=== PATIENT | female | born 1995 | race Hispanic/Latino ===

== ENCOUNTER 2017-05-28 22:48 | Inpatient (IN) | payer MEDICAID ==
[2017-05-29] MEDS ORDERED: STADOL IV PRN (00:35)
[2017-05-29] MEDS ORDERED: MINERAL OIL PO PRN (00:35)
[2017-05-29] MEDS ORDERED: ZOFRAN IV PRN (00:35)
[2017-05-29] MEDS ORDERED: XYLOCAINE 2% INFILTRATI ONE (00:35)
[2017-05-29] MEDS ORDERED: BRETHINE SUB-Q PRN (00:35)
[2017-05-29] MEDS ORDERED: SUBLIMAZE IV PRN (00:35)
[2017-05-29] MEDS ORDERED: ePHEDrine SULFATE IV PRN ×2 (00:35→02:40)
--- NOTE | 2017-05-29 00:44 | History and Physical Report ---
History of Present Illness Date of examination: 05/29/17 Date of admission: 05/28/17 22:50 Chief complaint: SROM History of present illness: EDC Confirmation: 05/25/2017 Past History : 3 Term Births: 2 Living Children: 2 Para: 2 Prev : 0 Aborta: 0 Elect. Ab: 0 Spont. 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 of genital herpes: no Partner hx. of genital herpes: no Rash, Viral, or Febrile illness since last LMP? no Varicella/Chicken Pox Status: Immunized TB Risk: no Genetic History Congenital Heart Defect: Mom: no Dad: no Sriram Disease: Mom: no Dad: no Thalassemia Mom: no Dad: no Neural Tube Defect Mom: no Dad: no Down's Syndrome Mom: no Dad: no Tio-Sachs Mom: no Dad: no Sickle Cell Disease/Trait Mom: no Dad: no Hemophilia Mom: no Dad: no Muscular Dystrophy Mom: no Dad: no Cystic Fibrosis Mom: no Dad: no Karlos Chorea Mom: no Dad: no Mental Retardation Mom: no Dad: no Fragile X Mom: no Dad: no Other Genetic/Chromosomal Disorder Mom: no Dad: no Child w/other defect Mom: no Dad: no Enviromental Exposures Xray Exposure: no Medication, drug, or alcohol use since LMP: no Chemical/Other Exposure: no Exposure to Cat Liter: yes Hx of Parvovirus (Fifth Disease): no Occupational Exposure to Children: none Active Medications (reviewed today): None Current Allergies (reviewed today): * PCN (Critical) Past History Past Medical History: other (see HPI) 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 History: 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 (see 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) 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) - Obstetrical History Expected Date of Delivery: 05/25/17 Actual Gestation: 40 Week(s) 4 Day(s) : 3 Para: 2 Hx # Term Pregnancies: 2 Number of Pregnancies: 0 Spontaneous Abortions: 0 Induced : 0 Number of Living Children: 2 Medications and Allergies Allergies Allergy/AdvReac Type Severity Reaction Status Date / Time Penicillins Allergy Hives Unverified 05/28/17 22:51 Active Meds: Active Medications Butorphanol Tartrate (Stadol) 2 mg IV Q2H PRN PRN Reason: Pain , Severe (7-10) Ephedrine Sulfate (Ephedrine Sulfate) 10 mg IV Q2M PRN PRN Reason: Hypotension Fentanyl (Sublimaze) 100 mcg IV Q2H PRN PRN Reason: Labor Pain Lactated Ringer's (Lactated Ringers) 1,000 mls @ 125 mls/hr IV DIRECT RAVI Oxytocin/Sodium Chloride (Pitocin/Ns 20 Unit/1000ml Drip) 20 units in 1,000 mls @ 125 mls/hr IV DIRECT RAVI Oxytocin/Sodium Chloride (Pitocin/Ns 30 Unit/500ml) 30 units in 500 mls @ 4 mls /hr IV TITR RAVI; Protocol Lidocaine (Xylocaine 2%) 20 ml INFILTRATI ONCE ONE Stop: 05/29/17 00:36 Mineral Oil (Mineral Oil) 30 ml PO QHS PRN PRN Reason: Constipation Ondansetron HCl (Zofran) 4 mg IV Q8H PRN PRN Reason: Nausea And Vomiting Terbutaline Sulfate (Brethine) 0.25 mg SUB-Q ONCE PRN PRN Reason: Hyperstimulation/Hypertonicity Review of Systems All systems: negative - Vital Signs Vital signs: Vital Signs Temp Pulse Resp BP Pulse Ox 98.9 F 95 H 18 112/68 98 05/28/17 23:37 05/28/17 23:37 05/28/17 23:37 05/28/17 23:37 05/28/17 23:37 Temp Pulse Resp BP Pulse Ox 98.9 F 95 H 18 112/68 98 05/28/17 23:37 05/28/17 23:37 05/28/17 23:37 05/28/17 23:37 05/28/17 23:37 - Physical Exam Breasts: Positive: normal Cardiovascular: Regular rate Lungs: Positive: Clear to auscultation Abdomen: Positive: normal appearance, soft, normal bowel sounds Genitourinary (Female): Positive: normal external genitalia, normal perenium Vulva: both: normal Vagina: Positive: normal moisture Uterus: Positive: normal size, normal contour Anus/Rectum: Positive: normal perianal skin Extremities: Positive: normal Deep Tendon Reflex Grade: Normal +2 - Obstetrical FHR: category 1 Uterine Contraction Monitor Mode: External Cervical Dilatation: 4.5 (posterior, clear fluid) Cervical Effacement Percentage: 80 station: -2 Uterine Contraction Pattern: Irregular Uterine Tone Measurement Phase: Contraction Uterine Contraction Intensity: Mild Results All other labs normal. Assessment and Plan 22y/o @40+4 weeks, admitted for SROM @ 202905/28/17. normal course. GBS NEG. Admission orders in EMR. Pitocin augmentation, epidural PRN. Anticipate . - Patient Problems (1) SROM (spontaneous rupture of membranes) Current Visit: Yes Status: Acute (2) 40 weeks gestation of Current Visit: Yes Status: Acute
[2017-05-29] MEDS ORDERED: PITOCin/NS 20 UNIT/1000ML DRIP 20 UNITS/1,000 ML BAG IV SCH ×2 (01:00→11:49)
[2017-05-29] MEDS ORDERED: PITOCin/NS 30 UNIT/500ML 30 UNITS/500 ML BAG IV SCH (01:00)
[2017-05-29] MEDS ORDERED: LACTATED RINGERS 1,000 ML IV SCH (01:00)
[2017-05-29 02:03] LABS: Hematocrit 28.2 % (30.3-42.9); Hemoglobin 9.3 gm/dl (10.1-14.3); Mean Corpuscular HGB Conc 33 % (30-34); Mean Corpuscular Volume 75 fl (79-97); Platelet Count 253 K/mm3 (140-440); Red Blood Count 3.75 M/mm3 (3.65-5.03); Red Cell Distribution Width 14.5 % (13.2-15.2)
[2017-05-29 02:05] LABS: Mean Corpuscular Hemoglobin 25 pg (28-32)
[2017-05-29] MEDS ORDERED: NARCAN 2 MG/2 ML IV PRN (02:40)
--- NOTE | 2017-05-29 02:40 | Anesthesia Consultation ---
Anesthesia Consult and Med Hx Date of service: 05/29/17 - Airway Anesthetic Teeth Evaluation: Good ROM Head & Neck: Adequate Mental/Hyoid Distance: Adequate Intubation Access Assessment: Possibly Difficult - Pulmonary Exam CTA: Yes - Cardiac Exam Cardiac Exam: RRR - Pre-Operative Health Status ASA Pre-Surgery Classification: ASA2 Proposed Anesthetic Plan: Epidural, Spinal - Pulmonary Hx Smoking: No Hx Asthma: No COPD: No Hx Pneumonia: No - Cardiovascular System Hx Hypertension: No - Central Nervous System Hx Seizures: No Hx Psychiatric Problems: No - Endocrine Hx Renal Disease: No Hx End Stage Renal Disease: No Hx Hypothyroidism: No Hx Hyperthyroidism: No - Hematic Hx Anemia: No Hx Sickle Cell Disease: No - Other Systems Hx Alcohol Use: No
[2017-05-29] MEDS ORDERED: fentaNYL-BUPIV 2 MCG/ML-0.125% 200 MCG/100 ML BAG EPIDURAL SCH (03:00)
--- NOTE | 2017-05-29 06:06 | Procedure Note ---
OB Delivery Note - Delivery Date of Delivery: 05/29/17 ( male) Outlet Manager: LI VERDUGO Estimated blood loss: 200cc - Vaginal Delivery presentation: vertex Delivery position: OA Intrapartum events: mult.variable deceleratio Delivery induction: none Delivery augmentation: pitocin Delivery monitor: external FHT, external uterine Route of delivery: Delivery placenta: spontaneous Delivery cord: nuchal cord (cord around neck and shoulder), 3 umbilical vessels Delivery laceration: none Anesthesia: epidural Delivery comments: Male del over intact perineum, placed skin to skin. 3 vessel cord clamped and cut. placenta del intact and complete. No lacerations to repair. EBL 200. Apgars 8/9, baby's weight 6#13oz - Infant A at 1 minute: 8 at 5 minutes: 9 Gender: Male (6#13)
[2017-05-29] MEDS ORDERED: MILK OF MAGNESIA PO PRN (11:49)
[2017-05-29] MEDS ORDERED: PRENATAL VITAMIN PO SCH (11:49)
[2017-05-29] MEDS ORDERED: PHENERGAN PO PRN (11:49)
[2017-05-29] MEDS ORDERED: BENADRYL PO PRN (11:49)
[2017-05-29] MEDS ORDERED: TUCKS PAD TP PRN (11:49)
[2017-05-29] MEDS ORDERED: LANSINOH TP PRN (11:49)
[2017-05-29] MEDS ORDERED: SODIUM CHLORIDE FLUSH SYRINGE 10 ML IV NR (11:49)
[2017-05-29] MEDS ORDERED: DERMOPLAST TP PRN (11:49)
[2017-05-29] MEDS ORDERED: NORCO 5/325 PO PRN (11:49)
[2017-05-29] MEDS ORDERED: FEOSOL PO SCH (11:49)
[2017-05-29] MEDS: MOTRIN PO SCH (11:57)
[2017-05-29] MEDS ORDERED: TYLENOL PO PRN (12:00)
[2017-05-29] MEDS ORDERED: DULCOLAX PR PRN (12:00)
[2017-05-29 19:36] LABS: Hematocrit 25.8 % (30.3-42.9); Hemoglobin 8.4 gm/dl (10.1-14.3)
[2017-05-30] MEDS: MOTRIN PO SCH ×3 (00:05→11:45)
--- NOTE | 2017-05-30 05:32 | Discharge Summary ---
Providers - Providers Date of Admission: 05/28/17 22:50 Date of discharge: 05/30/17 (pt desires d/c ) Attending physician: CARLYN GOODE 05/29/17 11:49 Consult to Registered Nurse Post Partum [CONS] Routine Reason For Exam: assistance with , SNS Primary care physician: CARLYN GOODE Hospitalization Reason for admission: active labor Delivery: Episiotomy: none Laceration: none Incision: normal Other procedures: none complications: none Discharge diagnosis: IUP at term delivered [place] baby: male Hospital course: uncomplicated vaginal delivery Pt w/o complaint VSS FF below umb Lochia small Perineum intact. H&H 10/05, chronic anemia. Pt is asymptomatic Doing well s/p vag delivery P: d/c today with instructions RTO 4 weeks PP care One week for circ. RX provided @ d/c Condition at discharge: Good Disposition: DC-01 TO HOME OR SELFCARE - Discharge Diagnoses (1) (normal spontaneous vaginal delivery) Status: Acute Comment: RTO 4 weeks PP care Plan - Provider Discharge Summary Activity: routine, no sex for 6 weeks, no heavy lifting 4 weeks, no strenuous exercise Diet: routine Instructions: routine Additional instructions: [] Smoking cessation referral if applicable(refer to patient education folder for contact #) [] Refer to [facility] Booklet Call your doctor immediately for: * Fever > 100.5 * Heavy vaginal bleeding ( >1 pad per hour) * Severe persistent headache * Shortness of breath * Reddened, hot, painful area to leg or breast * Drainage or odor from incision. * Keep incision clean and dry at all times and follow doctor's instructions regarding bathing/showering - Follow up plan Follow up: CARLYN GOODE MD [Primary Care Provider] - 7 Days (Congratulations! Please call [phone] to schedule your visit in 4 weeks and your son's circumcision in one week. Bring the EMLA cream with you to his visit. Do NOT use it at home. Take medications as prescribed. Call with any concerns.)
[2017-05-30] MEDS ORDERED: BOOSTRIX IM ONE (06:08)
[2017-05-30 12:19] VITALS: BP 98/62
== END 2017-05-30 14:15 | disposition home or self-care (01) | DRG 775 ==
LOC: TRG 22:48 → LD 22:50 → OB 05-29 08:46
PROVIDERS: ADMIT Obstetrics & Gynecology; ATTEND Obstetrics & Gynecology
PROC: 10E0XZZ Delivery of Products of Conception, External Approach (ICD-10-PCS; principal; 2017-05-29)
PROC: 3E0R3BZ Introduction of Anesthetic Agent into Spinal Canal, Percutaneous Approach (ICD-10-PCS; 2017-05-29)
PROC: 00HU33Z Insertion of Infusion Device into Spinal Canal, Percutaneous Approach (ICD-10-PCS; 2017-05-29)
PROC: 3E0234Z Introduction of Serum, Toxoid and Vaccine into Muscle, Percutaneous Approach (ICD-10-PCS; 2017-05-30)
DX: O76 Abnormality in fetal heart rate and rhythm complicating labor and delivery (principal); O69.81X0 Labor and delivery complicated by cord around neck, without compression, not applicable or unspecified; Z88.0 Allergy status to penicillin; Z23 Encounter for immunization; Z37.0 Single live birth; Z3A.40 40 weeks gestation of pregnancy
CPT/HCPCS: 36415; 85014; 85018; 85027; 86592; 86850; 86900; 86901; 90471; 90715; 99211; G0463; J2590; J7120

== ENCOUNTER 2017-07-30 09:45 | Day surgery (SDC) | payer MEDICAID ==
--- NOTE | 2017-07-29 20:02 | History and Physical Report ---
History of Present Illness Date of examination: 07/25/17 Chief complaint: Sterilization History of present illness: Past History : 3 Term Births: 3 Living Children: 3 Para: 3 Prev : 0 Aborta: 0 Elect. Ab: 0 Spont. 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 of genital herpes: no Partner hx. of genital herpes: no Hx of STD: none Active Medications (reviewed today): OXYCODONE-ACETAMINOPHEN 5-325 MG ORAL TABLET (OXYCODONE-ACETAMINOPHEN) 1-2po q6h IBUPROFEN 600 MG ORAL TABLET (IBUPROFEN) 1 po q6hrs as directed prn FIORICET/CODEINE [id number] MG ORAL CAPSULE ([id number]-COD) ZOLOFT 50 MG ORAL TABLET (SERTRALINE HCL) 1 po in the morning Current Allergies (reviewed today): PCN (Critical) * LATEX (Critical) Past Medical History: Neurologic Disorder - migranes w/o aura Depression 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 History: Reviewed history from 11/13/2016 and no changes required: Negative 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 History Family History Summary: Other family member - Has No Family History of Uterine Cancer - Entered On: 07/29 Other family member - Has No Family History of Stomach Cancer - Entered On: 07/29 Other family member - Has No Family History of Spontaneous DVT-PE - Entered On: 07/29/2017 Other family member - Has No Family History of Small Bowel Cancer - Entered On: 07/29/2017 Other family member - Has No Family History of Pancreatic Cancer - Entered On: Other family member - Has No Family History of Ovarvian Cancer - Entered On: Other family member - Has No Family History of Kidney/Urinary Tract Cancer - Entered On: 07/29/2017 Other family member - Has No Family History of Colon Cancer - Entered On: 2017 Other family member - Has No Family History of Brain Cancer - Entered On: 2017 Other family member - Has No Family History of Biliary Tract Cancer - Entered On : 07/29/2017 PGM - Has Family History Breast Cancer - and great - Entered On: 07/29/2017 Aunt - Has Family History Breast Cancer - paternal x3 - Entered On: 07/29/2017 General Comments - FH: No known family hx, denies any fh of CA Social History: Reviewed history from 11/13/2016 and no changes required: single no ETOH/Drugs/Smoking Patient is single Smoking History: Patient has never smoked. Risk Factors: Smoked Tobacco Use: Never smoker Alcohol use: no Previous Tobacco Use: Signed On - 06/28/2017 Smoked Tobacco Use: Never smoker Smokeless Tobacco Use: Never Passive smoke exposure: no Drug use: no HIV high-risk behavior: no Caffeine use: 0 drinks per day Previous Alcohol Use: Signed On - 06/28/2017 Alcohol use: no Exercise: no Seatbelt use: 100 % Family History Risk Factors: Family History of [place] in females < 65 years old: no Family History of [place] in males < 55 years old: no Dietary Counseling: pn yes Review of Systems General Denies fever, chills, sweats, anorexia, fatigue, weakness, malaise, weight loss and sleep disorder. Denies vaginal discharge, incontinence, dysuria, hematuria, urinary frequency, amenorrhea, menorrhagia, abnormal vaginal bleeding, pelvic pain, genital sores, decreased libido, painful periods, painful sex, urinary urgency, hot flashes, vaginal dryness, vaginal itching and vaginal odor. CV Denies chest pains, palpitations, syncope, dyspnea on exertion, orthopnea, PND and peripheral edema. Resp Denies cough, dyspnea at rest, excessive sputum, hemoptysis, wheezing and pleurisy. GI Denies nausea, vomiting, diarrhea, constipation, change in bowel habits, abdominal pain, melena, hematochezia, jaundice, gas/bloating, indigestion/ heartburn, dysphagia and odynophagia. Endo Denies cold intolerance, heat intolerance, polydipsia, polyphagia, polyuria and unusual weight change. Breast Denies left breast lump, right breast lump, nipple discharge, bloody discharge from nipple, breast pain, abnormal mammogram and breast enlargement. MS Denies back pain, joint pain, joint swelling, muscle cramps, muscle weakness, stiffness, arthritis, sciatica, restless legs, leg pain at night and leg pain with exertion. Derm Denies rash, itching, dryness and suspicious lesions. Neuro Denies paralysis, paresthesias, headache, seizures, tremors, vertigo, transient blindness, frequent falls, frequent headaches and difficulty walking. Psych Denies depression, anxiety, irritability and mood swings. Eyes Denies blurring, diplopia, irritation, discharge, vision loss, eye pain and photophobia. ENT Denies earache, ear discharge, tinnitus, decreased hearing, nasal congestion, nosebleeds, sore throat and hoarseness. Allergy Denies urticaria, allergic rash, hay fever and recurrent infections. Heme Denies abnormal bruising, bleeding and enlarged lymph nodes. Physical Exam Appearance: well developed, well nourished, no acute distress Other Exams Lungs: no rales, rhonchi, or wheezes Heart: S1, S2, no murmur, rub, or gallop Impression & Recommendations: Problem # 1: Sterilization (ICD-V25.2) ([id number]) Risks of regret emphasized. Permanent and irreversible condition explained to patient. Pt verbalized understanding. Consent reviewed and signed. Pre- operative instructions sheets given. The risks and alternatives to this surgery were reviewed with the patient. Infection precautions reviewed, pt to call for any signs or symptoms of infection. Patient given ample opportunity to have all her questions answered before signing informed consent. Patient informed of possible bleeding. 1%failure rate emphasized. She desiores to proceed with removal of both fallopoian tubes for sterilization and other indicated procedures Consent reviewed and signed . Possible laparoscopy or laparotomy explained to patient. The risks and alternatives for this surgery were reviewed with the patient. She was informed of possible bleeding, infection, injury to bowel, bladder, ureters or other adjacent organs. The patient was instructed/informed the following: The normal length of hospital stay for this procedure. Nothing to eat or drink after midnight the evening prior to surgery. Clear liquids the day before surgery. Fleets enema the day prior to surgery. Pre-op instruction sheets given. Wound care instructions given. Infection precautions reviewed, patient to call for any signs or symptoms of infection. The usual discomforts associated with this procedure were detailed. Proper use of pain medicines was reviewed. Patient was given ample opportunity to have all her questions answered before signing informed consent. Medications Added to Medication List This Visit: 1) Oxycodone-acetaminophen 5-325 Mg Oral Tablet (Oxycodone-acetaminophen) .... 1-2po q6h 2) Ibuprofen 600 Mg Oral Tablet (Ibuprofen) .... 1 po q6hrs as directed prn 3) Fioricet/codeine 63-766-47-30 Mg Oral Capsule (Jmwhyefegi-gpyp-wnen-cod) Prescriptions: OXYCODONE-ACETAMINOPHEN 5-325 MG ORAL TABLET (OXYCODONE-ACETAMINOPHEN) 1-2po q6h #10 x 0 Entered and Authorized by: Belle Castro MD Method used: Print then Give to Patient RxID: [id number] IBUPROFEN 600 MG ORAL TABLET (IBUPROFEN) 1 po q6hrs as directed prn #30 Tablet x 0 Entered and Authorized by: Belle Castro MD Method used: Print then Give to Patient RxID: [id number] Medications and Allergies Allergies Allergy/AdvReac Type Severity Reaction Status Date / Time Latex, Natural Rubber Allergy Hives Verified 07/25/17 15:02 Penicillins Allergy Hives Verified 07/25/17 15:02 Home Medications Medication Instructions Recorded Confirmed Last Taken Type Sertraline [Zoloft] 50 mg PO DAILY 07/25/17 07/25/17 Unknown History Active Meds: Active Medications Cefazolin Sodium (Ancef/Sterile Water 2 Gm/20 Ml) 2 gm in 20 mls @ 80 mls/hr IV PREOP NR; Protocol Assessment and Plan - Patient Problems (1) Sterilization Status: Acute
[~2017-07-30 09:45] MED LIST: ANCEF/STERILE WATER 2 GM/20 ML 2 GM/20 ML SYRINGE IV NR; CLEOCIN 600 MG/50 mL 600 MG/50 ML BAG IV NR; MARCAINE 0.5% 30 ML INFILTRATI ONE
[2017-07-30] MEDS ORDERED: NACL BACTERIOSTATIC INFILTRATI ONE (10:28)
[2017-07-30] MEDS ORDERED: TORADOL IV PRN (11:08)
[2017-07-30] MEDS ORDERED: ZOFRAN IV PRN (11:08)
[2017-07-30] MEDS ORDERED: DILAUDID IV PRN (11:08)
[2017-07-30] MEDS ORDERED: NARCAN 0.4 MG/1 ML IV PRN (11:08)
[2017-07-30] MEDS ORDERED: DEMEROL IV PRN (11:08)
--- NOTE | 2017-07-30 11:11 | Anesthesia Consultation ---
Anesthesia Consult and Med Hx Date of service: 07/30/17 - Airway Anesthetic Teeth Evaluation: Poor, Chipped, Caps, Crowns ROM Head & Neck: Adequate Mental/Hyoid Distance: Adequate Mallampati Class: Class I Intubation Access Assessment: Good - Pulmonary Exam CTA: Yes - Cardiac Exam Cardiac Exam: RRR - Pre-Operative Health Status ASA Pre-Surgery Classification: ASA1 Proposed Anesthetic Plan: General - Pulmonary Hx Smoking: No Hx Asthma: No COPD: No Hx Pneumonia: No - Cardiovascular System Hx Hypertension: No - Central Nervous System Hx Seizures: No Hx Psychiatric Problems: Yes - Endocrine Hx Renal Disease: No Hx End Stage Renal Disease: No Hx Hypothyroidism: No Hx Hyperthyroidism: No - Hematic Hx Anemia: No Hx Sickle Cell Disease: No - Other Systems Hx Alcohol Use: No Hx Cancer: No
--- NOTE | 2017-07-30 11:12 | Anesthesia Day of Surgery ---
Anesthesia Day of Surgery - Day of Surgery Patient Examined: Yes Patient H&P Reviewed: Yes Patient is NPO: Yes
[2017-07-30] MEDS ORDERED: PEPCID PO NR (12:00)
[2017-07-30] MEDS ORDERED: LACTATED RINGERS 1,000 ML IV SCH (12:00)
[2017-07-30] MEDS ORDERED: VERSED IV NR (12:00)
[2017-07-30] MEDS ORDERED: ZOFRAN IV NR (12:00)
[2017-07-30] MEDS ORDERED: SUBLIMAZE ONE (13:14)
[2017-07-30] MEDS ORDERED: DIPRIVAN 10 MG/ML IV ONE (13:14)
[2017-07-30] MEDS ORDERED: ZOFRAN ONE (13:17)
[2017-07-30] MEDS ORDERED: DECADRON ONE (13:17)
[2017-07-30] MEDS ORDERED: BLOXIVERZ ONE (13:17)
[2017-07-30] MEDS ORDERED: ROBINUL ONE (13:17)
[2017-07-30] MEDS ORDERED: QUELICIN ONE (13:17)
[2017-07-30] MEDS ORDERED: ZEMURON IV ONE (13:17)
[2017-07-30] MEDS ORDERED: TORADOL ONE (13:17)
[2017-07-30] MEDS ORDERED: XYLOCAINE MPF 2% ONE (13:30)
[2017-07-30] MEDS ORDERED: MARCAINE 0.5% 30 ML INFILTRATI ONE (14:00)
[2017-07-30] MEDS ORDERED: XYLOCAINE CARDIAC IV ONE (14:20)
--- NOTE | 2017-07-30 14:41 | Operative Report ---
Operative Report Operative Report: Date: 07/30/2017 Preoperative diagnosis: Desire sterilization Postoperative diagnosis: Desire sterilization Procedure: Laparoscopic bilateral salpingectomy for sterilization Surgeon: Belle Castro MD Roll Scale Man: [] Anesthesiologist: Louis Messer M.D. Anesthesia: Gen. anesthesia EBL: Minimal Findings: Grossly normal uterus tubes and ovaries Procedure: After risks, benefits, consequences, alternatives and complications were discussed patient voiced her understanding and desire to proceed, she was taken to the OR and placed in the supine position. After general anesthesia was induced, she was placed in the dorsal lithotomy position. Exam under anesthesia was unremarkable. She was then prepped and draped in the usual sterile fashion. After a timeout was performed, a House catheter was introduced into the bladder with drainage of clear yellow urine. A operative speculum was introduced into the vagina, and anterior lip cervix was grasped with a single-toothed tenaculum. The uterus was sounded to 8 cm. The cervix was progressively dilated to allow the Sargis uterine manipulator. The tenaculum and speculum were removed. Sterile gloves were placed and attention was turned to the abdomen. An infraumbilical incision was made and a 5 mm Optiview trocar with scope and camera attached were placed through the incision. The abdomen was entered under direct visualization. The abdomen was then insufflated. No bowel, bladder, ureteral, or major vessel injury was noted. She was then placed in steep Trendelenburg position. The above findings were noted. An additional 5 mm trocar was placed through a suprapubic midline incision made approximately 2 cm superior to the symphysis pubis. A 5 mm trocar was introduced under direct visualization. No bowel, bladder or ureteral or major vascular injury was noted. The uterus was elevated, using the 5 mm [place] LigaSure device bilateral salpingectomy was performed. Each tube was removed through the suprapubic trocar. Attention was turned to the adnexa where hemostasis was noted. The remaining corneal segment of tube was cauterized bilaterally. Again no bowel, bladder or ureteral or major vascular injury was noted. The gas was released from the abdomen under direct visualization. All areas appeared to be hemostatic again no obvious evidence of bowel, bladder, ureteral or vascular injury. At this point the procedure was ended. The remaining air in the abdomen was released. Patient was taken out of Trendelenburg position. The incisions were reapproximated using 4-0 Vicryl in a subcuticular manner. The incisions were then infused with half percent Marcaine without epinephrine. Then attention was turned to the vagina where the uterine manipulator was removed. No bleeding was noted from the vagina. The House catheter was then removed, clear yellow urine was noted to drain into the House tubing as well as into the bag. Counts were correct 3 patient tolerated procedure well was taken to recovery in stable condition
--- NOTE | 2017-07-30 14:46 | Discharge Summary ---
Providers - Providers Date of discharge: 07/30/17 Attending physician: CARLYN GOODE Primary care physician: CARLYN GOODE Hospitalization Condition: Good Procedures: Bilateral salpingectomy for sterilization Hospital course: Unremarkable Disposition: DC-01 TO HOME OR SELFCARE - Discharge Diagnoses (1) Sterilization Status: Acute Core Measure Documentation - Palliative Care Palliative Care/ Comfort Measures: Not Applicable - Core Measures Any of the following diagnoses?: none Exam - Constitutional Vitals: Temp Pulse Resp BP Pulse Ox 97 F L 64 10 L 95/56 99 07/30/17 14:15 07/30/17 14:30 07/30/17 14:30 07/30/17 14:30 07/30/17 14:30 General appearance: Present: mild distress (complaints of a headache at this time) - Respiratory Respiratory effort: normal - Cardiovascular Rhythm: regular - Extremities Extremities: no ischemia, No edema - Abdominal General gastrointestinal: Present: non-distended - Integumentary Integumentary: Present: clear, warm, dry - Psychiatric Psychiatric: appropriate mood/affect, intact judgment & insight Plan Activity: other (no sex) Weight Bearing Status: Full Weight Bearing Diet: regular Wound: open to air, keep clean and dry Special Instructions: no heavy lifting (greater than 25 pounds) Follow up with: CARLYN GOODE MD [Primary Care Provider] - (As scheduled)
[2017-07-30] MEDS ORDERED: MARCAINE 0.5% INFILTRATI ONE (15:10)
[2017-07-30 15:25] VITALS: BP 117/65
== END 2017-07-30 15:40 | disposition home or self-care (01) ==
LOC: OR 09:45
PROVIDERS: ATTEND Obstetrics & Gynecology
DX: Z30.2 Encounter for sterilization (principal); Z88.0 Allergy status to penicillin; Z91.040 Latex allergy status
CPT/HCPCS: 58661; 81025; 86850; 86900; 86901; 88302; J0330; J1100; J1885; J2001; J2175; J2405; J2704; J2710; J3010; J7120; J2250